=== PATIENT | male | born 1970 | race African-American/Black ===

== ENCOUNTER 2025-03-10 06:55 | Emergency (ER) | payer OTHER ==
[~2025-03-10] VITALS: Ht 172.7 cm; Wt 96.0 kg
[2025-03-10 07:05] VITALS: O2SAT 98
[2025-03-10] MEDS: ACETAMINOPHEN 325MG TABLET PO ONE (08:33)
[2025-03-10 11:02] VITALS: BP 162/98; PULSE 71; RESP 18; TEMP 36.8; O2SAT 98
== END 2025-03-10 11:04 | disposition home or self-care (01) ==
LOC: ER 07:18
DX: S06.9X1A Unspecified intracranial injury with loss of consciousness of 30 minutes or less, initial encounter (principal); M25.512 Pain in left shoulder; M54.2 Cervicalgia; W22.09XA Striking against other stationary object, initial encounter; Y93.89 Activity, other specified; Y92.410 Unspecified street and highway as the place of occurrence of the external cause; Y99.8 Other external cause status
CPT/HCPCS: 73030; 73590; 99291